=== PATIENT | male | born 1985 | race Caucasian/White ===

== ENCOUNTER 2019-09-12 09:32 | Emergency (ER) | payer SELFPAY ==
--- NOTE | 2019-09-12 10:02 | EDM.PDOC ---
ED HPI GENERAL MEDICAL PROBLEM - General Chief Complaint: Upper Extremity Injury/Pain Stated Complaint: CUT RT MIDDLE FINGER Time Seen by Provider: 09/12/19 10:02 Source of Information: Reports: Patient History Limitations: Reports: No Limitations - History of Present Illness INITIAL COMMENTS - FREE TEXT/NARRATIVE: pt cut himself on the knuckle of his middle finger and it is now red and red looking. It is also swollen. He is now tender up into the hand, Onset: Gradual, Other (last 2 days. ) Duration: Hour(s): Location: Reports: Upper Extremity, Right Associated Symptoms: Reports: No Other Symptoms Right Middle Finger-Middle Pain Score (Numeric/FACES): 2 - Related Data Allergies Allergy/AdvReac Type Severity Reaction Status Date / Time No Known Allergies Allergy Verified 09/12/19 09:48 Home Meds: Home Meds NK [No Known Home Meds] 09/12/19 [History] Past Medical History HEENT History: Reports: Impaired Vision - Past Surgical History Head Surgeries/Procedures: Reports: None HEENT Surgical History: Reports: None Dermatological Surgical History: Reports: None Social & Family History - Tobacco Use Smoking Status *Q: Never Smoker Second Hand Smoke Exposure: No - Caffeine Use Caffeine Use: Reports: Energy Drinks - Recreational Drug Use Recreational Drug Use: No Review of Systems - Review of Systems Review Of Systems: See Below Constitutional: Reports: No Symptoms Eyes: Reports: No Symptoms Ears: Reports: No Symptoms Nose: Reports: No Symptoms Mouth/Throat: Reports: No Symptoms Respiratory: Reports: No Symptoms Cardiovascular: Reports: No Symptoms GI/Abdominal: Reports: No Symptoms Genitourinary: Reports: No Symptoms Musculoskeletal: Reports: Other (pain in the rt hand) ED EXAM, GENERAL - Physical Exam Exam: See Below Free Text/Narrative:: pt arrived with pain in the rt hand coming from a infected rt middle finger. He had a cut about 10 days ago and it is now red and inflamed at the knuckle of the midle finger. Exam Limited By: No Limitations General Appearance: Alert, Anxious, Mild Distress Extremities: Other ( rt middle finger is red and inflamed at the kncuckle level. It is tender up into the hand,. ) Course - Vital Signs Last Recorded V/S: Last Vital Signs Temp 35.1 C L 09/12/19 09:54 Pulse 75 09/12/19 09:54 Resp 16 09/12/19 09:54 BP 127/92 H 09/12/19 09:54 Pulse Ox 99 09/12/19 09:54 - Orders/Labs/Meds Meds: Medications Discontinued Medications Generic Name Dose Route Start Last Admin Trade Name Jeanne PRN Reason Stop Dose Admin Bacitracin 1 dose 09/12/19 10:04 Bacitracin Oint 1 Gm TOP 09/12/19 10:05 ONETIME ONE Departure - Departure Time of Disposition: 10:02 Disposition: Home, Self-Care 01 Condition: Fair Clinical Impression: Infected cut of finger - Discharge Information Referrals: PCP,None [Primary Care Provider] - Forms: ED Department Discharge Care Plan Goals: soak in soapy water bid and apply bacatracin, keep covered, exercise the knuckle to maintain range of motion. Keflex 500mg tid. for 10 days.
[2019-09-12] MEDS ORDERED: Bacitracin Oint 1 GM U/D Packet TOP ONE (10:04)
== END 2019-09-12 10:15 | disposition home or self-care (01) ==
LOC: JP.ED 09:32
DX: S61.212A Laceration without foreign body of right middle finger without damage to nail, initial encounter (principal); L08.9 Local infection of the skin and subcutaneous tissue, unspecified; W45.8XXA Other foreign body or object entering through skin, initial encounter
CPT/HCPCS: 99283